=== PATIENT | male | born 1990 | race American Indian/Alaskan Native ===

== ENCOUNTER 2021-01-09 15:54 | Emergency (ER) | payer BC ==
[2021-01-09 16:07] VITALS: BP 123/75
--- NOTE | 2021-01-09 17:54 | Emergency Department Report ---
Minor Respiratory - HPI Chief Complaint: Fever Stated Complaint: CHILLS, PAIN, FEVER Minor Respiratory: Yes Rhinorrhea, Yes Sore Throat, Yes Able to Tolerate Fluids, Yes Cough, Yes Fever, No Ear Pain, No Sick Contacts, No Chest Pain, No Shortness of Breath Other History: 30-year-old -[place] male presents the emergency room stating that he has a fever sore throat chills and body aches runny nose and cough. He states that he is vaccinated for Covid in June 25, 2020. He states he is up-to-date on all his vaccines. He states that he last took Tylenol was 4 AM today as he had a fever of 102 during the night. Patient states he does have a primary care provider. ED Review of Systems ROS: Stated complaint: CHILLS, PAIN, FEVER Other details as noted in HPI ED Past Medical Hx - Medications Home Medications: Home Medications Medication Instructions Recorded Confirmed Last Taken Type No Known Home Medications [No 01/09/21 01/09/21 Unknown History Reported Home Medications] Minor Respiratory Exam - Exam General: Vital signs noted. No distress. Alert and acting appropriately. HEENT: Yes Moist Mucous Membranes, No Pharyngeal Erythema, No Pharyngeal Exudates, No Rhinorrhea, No Conjuctival Injection, No Frontal Tenderness, No Maxillary Tenderness Ear: Neither TM Bulge, Neither TM Erythema, Neither EAC Pain, Neither EAC Discharge Neck: Yes Supple, No Adenopathy Lungs: Yes Good Air Exchange, No Wheezes, No Ronchi, No Stridor, No Cough, No Labored Respirations, No Retractions, No Use of Accessory Muscles, No Other Abnormal Lung Sounds Heart: Yes Regular, No Murmur Abdomen: Yes Normal Bowel Sounds, No Tenderness, No Peritoneal Signs Skin: No Rash, No Edema Neurologic: Alert and oriented, no deficits. Musculoskeletal: Unremarkable. ED Course Vital Signs 01/09/21 15:55 Temperature 98.8 F Pulse Rate 92 H Respiratory 16 Rate Blood Pressure 123/75 [Right] O2 Sat by Pulse 97 Oximetry - Reevaluation(s) Reevaluation #1: 01/09/21 17:53 Spoke to lab they state they are processing the samples at this time. ED Medical Decision Making - Lab Data Lab Results 01/09/21 Range/Units Unknown Influenza A (Rapid) Negative (Negative) Influenza B (Rapid) Negative (Negative) Group A Strep Rapid Negative (Negative) - Medical Decision Making 30-year-old -[place] male presents the emergency room stating that he has a fever sore throat chills and body aches runny nose and cough. He states that he is vaccinated for Covid in June 25, 2020. He states he is up-to-date on all his vaccines. He states that he last took Tylenol was 4 AM today as he had a fever of 102 during the night. Patient states he does have a primary care provider. Rapid strep rapid flu obtained by this provider and sent to lab. Critical care attestation.: If time is entered above; I have spent that time in minutes in the direct care of this critically ill patient, excluding procedure time. ED Disposition Clinical Impression: Viral URI with cough Disposition: HOME / SELF CARE / HOMELESS Is pt being admited?: No Does the pt Need Aspirin: No Condition: Stable Instructions: Viral Respiratory Infection, [id number] Additional Instructions: Strep test is negative flu test is negative. You need to continue with supportive care such as Tylenol or ibuprofen cough medication sinus medicine. I do recommend a Covid screening test. Increase your water intake venture diet as tolerated and follow-up with your primary care provider. Your symptoms appear most consistent with a nonspecific viral syndrome. However, given this current pandemic, COVID-19 is in the differential of possibilities. Despite your previous negative COVID-19 test, I do recommend repeat outpatient Covid 19 testing. In the meantime, isolate/quarantine yourself and stay away from anyone who is elderly, immunocompromised or chronically ill. You can use ibuprofen every 6-8 hours and Tylenol every 4-8 hours, using the dosing on the back of the bottle, as needed for any fever or body aches. Return to the emergency department with any worsening of your symptoms, development of chest pain or shortness of breath, or with any acute distress. Referrals: ASHOK LANE MD [Staff Physician] - 3-5 Days Forms: Work/School Release Form(ED) Time of Disposition: 18:13
== END 2021-01-09 18:33 | disposition home or self-care (01) ==
LOC: ED 15:54
DX: J06.9 Acute upper respiratory infection, unspecified (principal); R05.9 Cough, unspecified
CPT/HCPCS: 87116; 87400; 87430; 99283